=== PATIENT | male | born 1965 | race Caucasian/White ===

== ENCOUNTER 2020-11-16 17:15 | Emergency (ER) | payer SELFPAY ==
[2020-11-16] MEDS ORDERED: Lidocaine 1% (PF) 30 ML VIAL ONE (17:55)
== END 2020-11-16 20:50 | disposition home or self-care (01) ==
LOC: ERS 17:15
DX: S62.631B Displaced fracture of distal phalanx of left index finger, initial encounter for open fracture (principal); F17.210 Nicotine dependence, cigarettes, uncomplicated; W22.8XXA Striking against or struck by other objects, initial encounter
CPT/HCPCS: 12001; J2001